=== PATIENT | female | born 1945 ===

== ENCOUNTER 2023-01-01 08:54 | Day surgery (SDC) | payer MEDICARE, OTHER ==
[2023-01-01] MEDS ORDERED: Sodium Chloride 0.9% 10 ML Syringe IV ONE (08:55)
[2023-01-01] MEDS ORDERED: Dexamethasone 4 MG/ML SDV IV ONE (08:55)
[2023-01-01] MEDS ORDERED: Midazolam 1 MG/ML 2 ML SDV IV ONE (08:55)
[2023-01-01] MEDS ORDERED: Timolol Maleate 0.5% Ophth Soln 5 ML Bottle EYERT ONE (09:00)
[2023-01-01] MEDS ORDERED: Proparacaine 0.5% Ophth Soln 15 ML Bottle EYELF ONE (09:00)
[2023-01-01] MEDS ORDERED: Cataract Ophth Solution EYELF ONE (09:00)
[2023-01-01] MEDS ORDERED: Proparacaine 0.5% Ophth Soln 15 ML Bottle EYERT ONE (09:00)
[2023-01-01] MEDS ORDERED: Tropicamide 1% Ophth Soln 15 ML Bottle EYERT ONE (09:00)
[2023-01-01] MEDS ORDERED: Moxifloxacin 0.5% Ophth Soln 3 ML Bottle EYERT ONE (09:00)
[2023-01-01] MEDS ORDERED: Acetaminophen/Codeine 300-30 MG Tab PO PRN (09:00)
[2023-01-01] MEDS ORDERED: Acetaminophen 325 MG Tab PO PRN (09:00)
[2023-01-01] MEDS ORDERED: Moxifloxacin 0.5% Ophth Soln 3 ML Bottle EYELF ONE (09:00)
[2023-01-01] MEDS ORDERED: Povidone-Iodine 5% Sterile Ophth Soln 30 ML Bottle EYELF ONE ×2 (09:00→09:48)
[2023-01-01] MEDS ORDERED: Phenylephrine 10% Ophth Soln 5 ML Bot EYELF PRN (09:00)
[2023-01-01] MEDS ORDERED: Sodium Chloride 0.9% 10 ML Syringe FLUSH PRN (09:00)
[2023-01-01] MEDS ORDERED: Ondansetron 4 MG/2 ML SDV IVPUSH PRN (09:00)
[2023-01-01] MEDS ORDERED: Timolol Maleate 0.5% Ophth Soln 5 ML Bottle EYELF ONE (09:00)
[2023-01-01] MEDS ORDERED: Phenylephrine 10% Ophth Soln 5 ML Bot EYERT PRN (09:00)
[2023-01-01] MEDS ORDERED: Povidone-Iodine 5% Sterile Ophth Soln 30 ML Bottle EYERT ONE (09:00)
[2023-01-01] MEDS ORDERED: Cataract Ophth Solution EYERT ONE (09:00)
[2023-01-01] MEDS ORDERED: Tropicamide 1% Ophth Soln 15 ML Bottle EYELF ONE (09:00)
[2023-01-01] MEDS ORDERED: Tetracaine HCl/PF 0.5% 4 ML Bottle EYELF ONE (09:47)
[2023-01-01] MEDS ORDERED: Brimonidine 0.2% Ophth Soln 5 ML Bottle EYELF ONE (09:48)
[2023-01-01] MEDS ORDERED: Tobramycin 0.3% Ophth Oint 3.5 GM Tube EYELF ONE (09:48)
[2023-01-01] MEDS ORDERED: Lidocaine 1% 30 ML SDV ONE (09:48)
[2023-01-01] MEDS ORDERED: Diclofenac Sodium 0.1% Ophth Soln 5 ML Bottle EYELF ONE (09:48)
[2023-01-01] MEDS ORDERED: Vancomycin 500 MG SDV EYELF ONE (09:49)
[2023-01-01] MEDS ORDERED: Chondroitin Sulfate/Hyaluronate Sodium Ophth Inj 0.75 ML Syringe EYELF ONE (09:49)
[2023-01-01] MEDS ORDERED: Balanced Salt Solution Ophth Irrig 500 ML Bottle IOCULAR ONE (09:49)
== END 2023-01-01 11:00 | disposition home or self-care (01) ==
LOC: DL.SDS 08:54
PROVIDERS: ATTEND Ophthalmology
DX: H25.812 Combined forms of age-related cataract, left eye (principal); H61.23 Impacted cerumen, bilateral; F17.210 Nicotine dependence, cigarettes, uncomplicated
CPT/HCPCS: 00142; A9270-GY; J1100; J2250; J3370; J3490; V2632

== ENCOUNTER 2023-01-15 06:14 | Day surgery (SDC) | payer MEDICARE, OTHER ==
[2023-01-15] MEDS ORDERED: Proparacaine 0.5% Ophth Soln 15 ML Bottle ONE (06:28)
[2023-01-15] MEDS ORDERED: Phenylephrine 10% Ophth Soln 5 ML Bot EYERT PRN (06:30)
[2023-01-15] MEDS ORDERED: Povidone-Iodine 5% Sterile Ophth Soln 30 ML Bottle EYERT ONE ×2 (06:30→07:56)
[2023-01-15] MEDS ORDERED: Proparacaine 0.5% Ophth Soln 15 ML Bottle EYERT ONE ×2 (06:30→07:55)
[2023-01-15] MEDS ORDERED: Timolol Maleate 0.5% Ophth Soln 5 ML Bottle EYERT ONE (06:30)
[2023-01-15] MEDS ORDERED: Moxifloxacin 0.5% Ophth Soln 3 ML Bottle EYERT ONE (06:30)
[2023-01-15] MEDS ORDERED: Sodium Chloride 0.9% 10 ML Syringe FLUSH PRN (06:30)
[2023-01-15] MEDS ORDERED: Acetaminophen 325 MG Tab PO PRN (06:30)
[2023-01-15] MEDS ORDERED: Cataract Ophth Solution EYERT ONE (06:30)
[2023-01-15] MEDS ORDERED: Acetaminophen/Codeine 300-30 MG Tab PO PRN (06:30)
[2023-01-15] MEDS ORDERED: Ondansetron 4 MG/2 ML SDV IVPUSH PRN (06:30)
[2023-01-15] MEDS ORDERED: Tropicamide 1% Ophth Soln 15 ML Bottle EYERT ONE (06:30)
[2023-01-15] MEDS ORDERED: Lidocaine 1% 30 ML SDV ONE (07:59)
[2023-01-15] MEDS ORDERED: Vancomycin 500 MG SDV EYERT ONE (08:00)
[2023-01-15] MEDS ORDERED: Balanced Salt Solution Ophth Irrig 15 ML Bottle EYERT ONE (08:00)
[2023-01-15] MEDS ORDERED: Chondroitin Sulfate/Hyaluronate Sodium Ophth Inj 0.75 ML Syringe EYERT ONE (08:01)
[2023-01-15] MEDS ORDERED: Apraclonidine 0.5% Ophth Soln 5 ML Bot EYERT ONE (08:02)
[2023-01-15] MEDS ORDERED: Dexamethasone/Neomycin/Polymyxin B Ophth Oint 3.5 GM Tube EYERT ONE (08:03)
== END 2023-01-15 08:45 | disposition home or self-care (01) ==
LOC: DL.SDS 06:14
PROVIDERS: ATTEND Ophthalmology
DX: H25.811 Combined forms of age-related cataract, right eye (principal); H61.20 Impacted cerumen, unspecified ear; F17.210 Nicotine dependence, cigarettes, uncomplicated
CPT/HCPCS: 00142; A9270-GY; J3370; J3490; V2632